=== PATIENT | female | born 1955 | race American Indian/Alaskan Native ===

== ENCOUNTER 2021-05-29 21:49 | Observation (INO) | payer MEDICAID ==
--- NOTE | 2021-05-29 22:13 | Emergency Department Report ---
ED Shortness of Breath HPI - General Chief Complaint: Dyspnea/Respdistress Stated Complaint: DIALYSIS/SHORTNESS OF BREATH Time Seen by Provider: 05/29/21 22:05 Source: EMS Mode of arrival: Stretcher Limitations: Other - History of Present Illness Initial Comments: 65-year-old female presents to ED with difficulty breathing. History of ESRD. Patient was last dialyzed 6 days ago. Missed 2 dialysis sessions secondary to transport not coming to pick the patient up. Patient due for dialysis again tomorrow. EMS was called because daughter noted that patient was having some trouble breathing. Patient states she does not feel like she was having any difficulty with her breathing. Patient states her daughter told her that she was breathing funny. EMS reports upon arrival, room air O2 sats were 83%. Patient was given Decadron 10 mg, albuterol 7.5 mg nebulizer. They also administered Nitropaste. States initial systolic BP in the field was in the 140s. CPAP was initiated by EMS. Patient does not know the name of her tissue recovery technician. MD Complaint: shortness of breath -: This evening Severity: moderate Consistency: constant Improves With: nothing Worsens With: nothing Treatments Prior to Arrival: NIPPV - Related Data Allergies Allergy/AdvReac Type Severity Reaction Status Date / Time ibuprofen Allergy Hives Verified 05/29/21 22:00 metronidazole [From Flagyl] Allergy Hives Verified 05/29/21 22:00 ED Review of Systems ROS: Stated complaint: DIALYSIS/SHORTNESS OF BREATH Other details as noted in HPI Comment: All other systems reviewed and negative Respiratory: shortness of breath Cardiovascular: denies: chest pain ED Past Medical Hx - Past Medical History Previous Medical History?: Yes Hx CVA: Yes Hx Diabetes: Yes Hx Renal Disease: Yes (DIALYSIS (M,W,F)) ED Physical Exam - General Limitations: Other General appearance: alert, in no apparent distress - Head Head exam: Present: atraumatic, normocephalic - Eye Eye exam: Present: normal appearance, EOMI - ENT ENT exam: Present: mucous membranes moist - Neck Neck exam: Present: normal inspection - Respiratory Respiratory exam: Present: rales - Cardiovascular Cardiovascular Exam: Present: regular rate, normal rhythm - GI/Abdominal GI/Abdominal exam: Present: soft. Absent: distended, tenderness - Extremities Exam Extremities exam: Present: normal inspection - Neurological Exam Neurological exam: Present: alert. Absent: oriented X3 (Oriented to self and place) - Psychiatric Psychiatric exam: Present: normal affect, normal mood - Skin Skin exam: Present: warm, dry, intact, normal color ED Course Vital Signs 05/29/21 05/29/21 05/29/21 21:58 22:36 23:31 Temperature 99.7 F H Pulse Rate 76 78 Respiratory 24 26 H Rate Blood Pressure Blood Pressure 138/58 [Left] O2 Sat by Pulse 100 99 Oximetry 05/29/21 05/29/21 05/30/21 23:41 23:45 00:01 Temperature Pulse Rate 70 79 83 Respiratory 25 H 30 H Rate Blood Pressure 124/55 131/62 Blood Pressure [Left] O2 Sat by Pulse 99 98 99 Oximetry 05/30/21 05/30/21 05/30/21 00:31 01:01 02:15 Temperature Pulse Rate 84 88 81 Respiratory 28 H 18 22 Rate Blood Pressure 139/58 139/97 137/57 Blood Pressure [Left] O2 Sat by Pulse 99 99 94 Oximetry 05/30/21 03:45 Temperature Pulse Rate 81 Respiratory 24 Rate Blood Pressure 137/55 Blood Pressure [Left] O2 Sat by Pulse Oximetry - Consultations Consultation #1: 05/30/21 00:[address] Ernst, tissue recovery technician, states will dialyze patient in the morning. ED Medical Decision Making - Lab Data Result diagrams: 05/29/21 22:56 05/29/21 22:56 - EKG Data -: EKG Interpreted by [facility] EKG shows normal: sinus rhythm, axis, intervals, QRS complexes, ST-T waves Rate: normal - EKG Data Interpretation: no acute changes - Radiology Data Radiology results: report reviewed, image reviewed - Medical Decision Making 65-year-old female presents to ED after missing dialysis. Patient was last dialyzed 6 days ago. O2 sats are normal. Chest x-ray shows possible pneumonia present. Patient is slightly tachypneic. She was given albuterol nebs and Decadron by EMS prior to ED arrival. Labs show hyperkalemia with potassium of 6.6. EKG is unremarkable. Patient given insulin, D50, calcium gluconate, Kayexalate. Nephrology has been consulted and will dialyze the patient in the morning. Patient will be admitted by Dr. Jolly, hospitalist. - Differential Diagnosis Pulmonary edema, pleural effusions, hyperkalemia Critical care attestation.: If time is entered above; I have spent that time in minutes in the direct care of this critically ill patient, excluding procedure time. ED Disposition Clinical Impression: Pneumonia, Hyperkalemia, ESRD needing dialysis Disposition: 09 ADMITTED INPATIENT Is pt being admited?: Yes Condition: Stable Time of Disposition: 00:09
[2021-05-29 23:38] LABS: Basophils % (Auto) 0.4 % (0.0-1.8); Eosinophils # (Auto) 0.1 K/mm3 (0.0-0.4); Eosinophils % (Auto) 1.7 % (0.0-4.3); Hematocrit 33.1 % (30.3-42.9); Hemoglobin 10.5 gm/dl (10.1-14.3); Lymphocytes # (Auto) 1.3 K/mm3 (1.2-5.4); Lymphocytes % (Auto) 15.1 % (13.4-35.0); Mean Corpuscular HGB Conc 32 % (30-34); Mean Corpuscular Volume 96 fl (79-97); Monocytes # (Auto) 0.3 K/mm3 (0.0-0.8); Monocytes % (Auto) 3.8 % (0.0-7.3); Platelet Count 187 K/mm3 (140-440); Red Blood Count 3.45 M/mm3 (3.65-5.03); Red Cell Distribution Width 17.1 % (13.2-15.2)
[2021-05-29 23:49] LABS: Calcium 8.6 mg/dL (8.4-10.2)
--- NOTE | 2021-05-29 23:54 | XRay Report ---
CHEST 1 VIEW 05/29/2021 11:02 PM INDICATION / CLINICAL INFORMATION: Shortness of breath. COMPARISON: None available. FINDINGS: SUPPORT DEVICES: There is a right jugular CVL with the tip overlying the upper cavoatrial junction. A cardiac loop recorder overlies the left chest. HEART / MEDIASTINUM: There is mild cardiomegaly. Pulmonary vasculature is normal for technique. There is calcification in the aortic arch without aneurysm. LUNGS / PLEURA: Interstitial lung markings are diffusely increased. There is mild patchy parenchymal disease in the right upper lobe. No pleural effusion. No pneumothorax. ADDITIONAL FINDINGS: No significant additional findings. IMPRESSION: 1. Mild diffuse interstitial lung disease may be chronic rather than acute. 2. Mild patchy parenchymal disease in the right upper lobe may be related to superimposed pneumonia. Signer Name: Tito Weeks MD Signed: 05/29/2021 11:49 PM Workstation Name: [id number]
[2021-05-30] MEDS ORDERED: SODIUM POLYSTYRENE 15 GM/60 ML ORAL LIQD PO ONE (00:01)
[2021-05-30] MEDS ORDERED: INSULIN REGULAR, HUMAN 100 UNITS/1 ML IV ONE (00:01)
[2021-05-30] MEDS ORDERED: DEXTROSE 50% IN WATER (25GM) 50 ML SYRINGE IV ONE (00:01)
[2021-05-30] MEDS ORDERED: levoFLOXacin 750 MG TAB PO ONE (00:06)
[2021-05-30] MEDS ORDERED: CALCIUM GLUCONATE 1,000 MG in SODIUM CHLORIDE 0.9% 100 ML IV ONE (00:41)
[2021-05-30] MEDS ORDERED: MAGNESIUM HYDROXIDE (MOM) ORAL LIQD UDC PO PRN (01:00)
[2021-05-30] MEDS ORDERED: MORPHINE 4 MG/1 ML INJ IV PRN (01:00)
[2021-05-30] MEDS ORDERED: ACETAMINOPHEN 325 MG TAB PO PRN (01:00)
[2021-05-30] MEDS ORDERED: ONDANSETRON 4 MG/2 ML INJ IV PRN (01:00)
[2021-05-30] MEDS ORDERED: MORPHINE 2 MG/1 ML INJ IV PRN (01:00)
[2021-05-30] MEDS ORDERED: DEXTROSE 50% IN WATER (25GM) 50 ML SYRINGE IV PRN (01:00)
[2021-05-30] MEDS ORDERED: diphenhydrAMINE 25 MG CAP PO ONE (01:09)
--- NOTE | 2021-05-30 01:21 | History and Physical Report ---
History of Present Illness Date of examination: 05/30/21 Date of admission: 05/30/2021 Chief complaint: Difficulty breathing History of present illness: 65-year-old female with known history of end-stage renal diseasedialysis on Mondays, Wednesdays and Fridays presents to the emergency room today complaining of difficulty breathing. Patient also indicates that she has not had dialysis in 6 days secondary to transportation issues. EMS had been called by daughter because patient was said to be having difficulty breathing. However upon arrival of EMS oxygen saturation was about 83% on room air. Patient was given Decadron, nebulizing treatments albuterol and Nitropaste. Patient was placed on CPAP in route to the hospital Upon arrival in the emergency room, patient felt much better without any significant respiratory distress. She was however slightly tachycardic and tachypneic and had a low-grade temperature of about 99.7 F. Work-up in the emergency room today, lab reveals a potassium level of 6.6, BUN of 71 and creatinine of 6.3. Chest x-ray shows mild patchy parenchymal disease in the right upper lobe which may be related to superimposed pneumonia. Mild diffuse interstitial lung disease which may be chronic rather than acute. Patient was started on empiric IV antibiotics for possible pneumonia. She also had Kayexalate, insulin and glucose, calcium gluconate for the hyperkalemia [employer] Operator on-call Dr. Ernst was also consulted by the ER physician. Past History Past Medical History: diabetes, dialysis, ESRD (Patient gets dialysis on Mondays, Wednesdays and Fridays.), stroke Past Surgical History: Other (Vas-Cath placement) Social history: no significant social history Family history: no significant family history Medications and Allergies Allergies Allergy/AdvReac Type Severity Reaction Status Date / Time ibuprofen Allergy Hives Verified 05/29/21 22:00 metronidazole [From Flagyl] Allergy Hives Verified 05/29/21 22:00 Active Meds: Active Medications Acetaminophen (Acetaminophen 325 Mg Tab) 650 mg PO Q4H PRN PRN Reason: Pain MILD(1-3)/Fever >100.5/FLORES Dextrose (Dextrose 50% In Water (25gm) 50 Ml Syringe) 0 ml IV Q30MIN PRN; Protocol PRN Reason: Hypoglycemia Heparin Sodium (Porcine) (Heparin 5,000 Unit/1 Ml Vial) 5,000 unit SUB-Q Q8HR ADALBERTO Ceftriaxone Sodium (Rocephin/Ns 2 Gm/100 Ml) 2 gm in 100 mls @ 200 mls/hr IV Q24HR ADALBERTO; Protocol Azithromycin (Zithromax/Ns) 500 mg in 250 mls @ 250 mls/hr IV Q24HR ADALBERTO; Protocol Insulin Human Lispro (Insulin Lispro 100 Unit/Ml) 0 unit SUB-Q ACHS ADALBERTO; Protocol Magnesium Hydroxide (Magnesium Hydroxide (Mom) Oral Liqd Udc) 30 ml PO Q4H PRN PRN Reason: Constipation Morphine Sulfate (Morphine 2 Mg/1 Ml Inj) 2 mg IV Q4H PRN PRN Reason: Pain, Moderate (4-6) Morphine Sulfate (Morphine 4 Mg/1 Ml Inj) 4 mg IV Q4H PRN PRN Reason: Pain , Severe (7-10) Ondansetron HCl (Ondansetron 4 Mg/2 Ml Inj) 4 mg IV Q8H PRN PRN Reason: Nausea And Vomiting Sodium Chloride (Sodium Chloride 0.9% 10 Ml Flush Syringe) 10 ml IV BID ADALBERTO Sodium Chloride (Sodium Chloride 0.9% 10 Ml Flush Syringe) 10 ml IV PRN PRN PRN Reason: LINE FLUSH Review of Systems Constitutional: no fever, no chills Ears, nose, mouth and throat: no nasal congestion, no sore throat Cardiovascular: no chest pain, no palpitations Respiratory: shortness of breath, no cough Gastrointestinal: no abdominal pain, no nausea, no vomiting, no diarrhea, no BRBPR, no melena Genitourinary Female: no pelvic pain, no flank pain, no dysuria, no hematuria Musculoskeletal: no neck pain, no low back pain Integumentary: no rash, no pruritis Neurological: no headaches, no confusion Psychiatric: no anxiety, no depression Endocrine: no polyphagia, no polydipsia, no polyuria, no nocturia Exam - Constitutional Vitals: Temp Pulse Resp BP Pulse Ox 99.7 F H 84 28 H 139/58 99 05/29/21 22:36 05/30/21 00:31 05/30/21 00:31 05/30/21 00:31 05/30/21 00:31 General appearance: Present: no acute distress, well-nourished - EENT Eyes: Present: PERRL, EOM intact. Absent: scleral icterus ENT: hearing intact, clear oral mucosa, dentition normal - Neck Neck: Present: supple, normal ROM - Respiratory Respiratory effort: normal Respiratory: bilateral: CTA - Cardiovascular Rhythm: regular Heart Sounds: Present: S1 & S2. Absent: gallop, systolic murmur, diastolic murmur, rub, click - Extremities Extremities: no ischemia, pulses intact, pulses symmetrical, No edema, normal temperature, normal color, Full ROM Peripheral Pulses: within normal limits - Abdominal General gastrointestinal: Present: soft, non-tender, non-distended, normal bowel sounds. Absent: mass - Integumentary Integumentary: Present: clear, warm, dry, normal turgor. Absent: rash - Musculoskeletal Musculoskeletal: strength equal bilaterally - Psychiatric Psychiatric: appropriate mood/affect, intact judgment & insight, memory intact, cooperative - Neurologic Neurologic: CNII-XII intact, no focal deficits, moves all extremities Results - Labs CBC & Chem 7: 05/29/21 22:56 05/29/21 22:56 Labs: Abnormal lab results 05/29/21 05/29/21 Range/Units 22:56 22:56 RBC 3.45 L (3.65-5.03) M/mm3 RDW 17.1 H (13.2-15.2) % Seg Neutrophils % 79.0 H (40.0-70.0) % Potassium 6.6 H* (3.6-5.0) mmol/L Carbon Dioxide 12 L (22-30) mmol/L BUN 71 H (7-17) mg/dL Creatinine 6.3 H (0.6-1.2) mg/dL Glucose 111 H (65-100) mg/dL Assessment and Plan - Patient Problems (1) ESRD needing dialysis Current Visit: Yes Status: Acute Plan to address problem: Patient gets dialysis on Mondays, Wednesdays and Fridays. She missed 2 sessions of dialysis secondary to transportation issues. She cannot recall the name of her edi programmer. [employer] has been consulted for possible dialysis in the a.m. (2) Hyperkalemia Current Visit: Yes Status: Acute Plan to address problem: Secondary to end-stage renal disease. Patient will be getting dialysis. Meanwhile patient has been given Kayexalate, calcium gluconate, insulin and glucose. We will monitor potassium levels. (3) Diabetes mellitus Current Visit: Yes Status: Acute Plan to address problem: We will monitor Accu-Cheks. Patient placed on sliding scale insulin. (4) Pneumonia Current Visit: Yes Status: Acute Plan to address problem: Patient placed on empiric IV antibiotics. (5) DVT prophylaxis Current Visit: Yes Status: Acute Plan to address problem: Patient placed on subcutaneous heparin. (6) Full code status Current Visit: Yes Status: Acute Plan to address problem: Patient is a full code.
[2021-05-30] MEDS: AZITHROMYCIN/NS 500 MG/250 ML 500 MG/250 ML BAG IV SCH ×2 (01:27→23:14)
[2021-05-30] MEDS: cefTRIAXone/NS 2 GM/100 ML 2 GM/100 ML BAG IV SCH ×2 (01:27→23:14)
[2021-05-30] MEDS: HEPARIN 5,000 UNIT/1 ML VIAL SUB-Q SCH ×3 (06:30→23:25)
--- NOTE | 2021-05-30 09:20 | Consultation ---
History of Present Illness - Reason for Consult Consult date: 05/30/21 end stage renal disease Requesting physician: RACHEL SAMANO - History of Present Illness 65-year-old female with known history of end-stage renal diseasedialysis on Mondays, Wednesdays and Fridays presented to the emergency room last night with complaints of difficulty breathing. Patient also indicates that she has not had dialysis in 6 days secondary to transportation issues. EMS had been called by daughter because patient was said to be having difficulty breathing. However upon arrival of EMS oxygen saturation was about 83% on room air. Patient was given Decadron, nebulizing treatments albuterol and Nitropaste. Patient was placed on CPAP in route to the hospital Upon arrival in the emergency room, patient felt much better without any significant respiratory distress. She was however slightly tachycardic and tachypneic and had a low-grade temperature of about 99.7 F. Work-up in the emergency room today, lab reveals a potassium level of 6.6, BUN of 71 and creatinine of 6.3. Chest x-ray shows mild patchy parenchymal disease in the right upper lobe which may be related to superimposed pneumonia. Mild diffuse interstitial lung disease which may be chronic rather than acute. Patient does not recall the name of her record tabulating clerk. Patient states that she goes to dialysis clinic in [place]. Past History Past Medical History: diabetes, dialysis, ESRD (Patient gets dialysis on Mondays, Wednesdays and Fridays.), stroke Past Surgical History: Other (Vas-Cath placement) Social history: no significant social history Family history: no significant family history Medications and Allergies Allergies Allergy/AdvReac Type Severity Reaction Status Date / Time ibuprofen Allergy Hives Verified 05/29/21 22:00 metronidazole [From Flagyl] Allergy Hives Verified 05/29/21 22:00 Active Meds: Active Medications Acetaminophen (Acetaminophen 325 Mg Tab) 650 mg PO Q4H PRN PRN Reason: Pain MILD(1-3)/Fever >100.5/FLORES Dextrose (Dextrose 50% In Water (25gm) 50 Ml Syringe) 0 ml IV Q30MIN PRN; Protocol PRN Reason: Hypoglycemia Heparin Sodium (Porcine) (Heparin 5,000 Unit/1 Ml Vial) 5,000 unit SUB-Q Q8HR ADALBERTO Last Admin: 05/30/21 06:30 Dose: 5,000 unit Documented by: Ceftriaxone Sodium (Rocephin/Ns 2 Gm/100 Ml) 2 gm in 100 mls @ 200 mls/hr IV Q24HR ADALBERTO; Protocol Stop: 06/02/21 10:29 Last Admin: 05/30/21 01:27 Dose: 200 mls/hr Documented by: Azithromycin (Zithromax/Ns) 500 mg in 250 mls @ 250 mls/hr IV Q24HR ADALBERTO; Protocol Stop: 06/02/21 10:59 Last Admin: 05/30/21 01:27 Dose: 250 mls/hr Documented by: Sodium Chloride (Nacl 0.9%) 100 mls @ 999 mls/hr IV ORLY PRN PRN Reason: Hypotension Insulin Human Lispro (Insulin Lispro 100 Unit/Ml) 0 unit SUB-Q ACHS ADALBERTO; Protocol Magnesium Hydroxide (Magnesium Hydroxide (Mom) Oral Liqd Udc) 30 ml PO Q4H PRN PRN Reason: Constipation Morphine Sulfate (Morphine 2 Mg/1 Ml Inj) 2 mg IV Q4H PRN PRN Reason: Pain, Moderate (4-6) Morphine Sulfate (Morphine 4 Mg/1 Ml Inj) 4 mg IV Q4H PRN PRN Reason: Pain , Severe (7-10) Ondansetron HCl (Ondansetron 4 Mg/2 Ml Inj) 4 mg IV Q8H PRN PRN Reason: Nausea And Vomiting Sodium Chloride (Sodium Chloride 0.9% 10 Ml Flush Syringe) 10 ml IV BID ADALBERTO Sodium Chloride (Sodium Chloride 0.9% 10 Ml Flush Syringe) 10 ml IV PRN PRN PRN Reason: LINE FLUSH Review of Systems All systems: negative (Negative except as noted above) Exam - Vital Signs Vital signs: Vital Signs Pulse Resp BP Pulse Ox 76 24 138/58 100 05/29/21 21:58 05/29/21 21:58 05/29/21 21:58 05/29/21 21:58 - General Appearance General appearance: well-developed, well-nourished, appears stated age EENT: PERRL, mucous membranes moist Neck: Present: neck supple, trachea midline, Other (Right IJ PermCath in place). Absent: JVD/HJR, Masses Respiratory: Clear to Ascultation Heart: regular, normal heart rate, S1S2, no murmurs Gastrointestinal: Present: normal, normoactive bowel sounds Integumentary: no rash, warm and dry, other (No edema) Results - Lab Results 05/29/21 22:56 05/29/21 22:56 Most recent lab results Calcium 8.6 mg/dL (8.4-10.2) 05/29/21 22:56 Assessment and Plan Impression * End-stage renal disease on maintenance hemodialysis * Noncompliance * Hyperkalemia * Metabolic acidosis * Anemia secondary to ESRD * Diabetes * History of CVA Recommendations * Shall arrange for hemodialysis this morning as soon as possible * Hopefully her hyperkalemia and acidosis will be corrected with dialysis * Recheck her chemistries again tomorrow. She may need additional dialysis treatment * Remove fluid as tolerated with dialysis * Adjust diet and meds for ESRD state * Avoid nephrotoxins * Epogen with dialysis * Binders with meals * Thank you very much for the consultation. Shall follow along with you
[2021-05-30] MEDS ORDERED: SODIUM CHLORIDE 0.9% 100 ML IV PRN (10:00)
[2021-05-30 15:09] LABS: Hepatitis C Virus Antibody Non-Reactive (NonReactive)
[2021-05-30 15:28] LABS: Hepatitis B Surface Antigen Nonreactive (Negative)
--- NOTE | 2021-05-30 16:30 | Discharge Summary ---
<RACHEL SAMANO - Last Filed: 05/30/21 16:29> Providers - Providers Date of Admission: 05/30/21 00:09 Date of discharge: 05/30/21 Attending physician: RACHEL SAMANO 05/30/21 00:09 Consult to Physician [CONS] Stat Comment: Consulting Provider: SALLY ROWLAND Physician Instructions: Reason For Exam: hyperkalemia 05/30/21 01:02 Consult to Dietitian/Nutrition [CONS] Routine Physician Instructions: Reason For Exam: Reason for Consult: Diet education Primary care physician: THERAPEUTIC MASSAGE TECHNICIAN Hospitalization Condition: Stable Disposition: 01 HOME / SELF CARE / HOMELESS Exam - Constitutional Vitals: Temp Pulse Resp BP Pulse Ox 97.3 F L 89 16 148/63 100 05/30/21 13:47 05/30/21 14:31 05/30/21 14:31 05/30/21 14:31 05/30/21 14:31 Plan Follow up with: RACHEL SAMANO MD [Staff Physician] - 7 Days <RAE HERNANDEZ - Last Filed: 06/01/21 22:28> Providers - Providers Date of Admission: 05/30/21 00:09 Attending physician: RACHEL SAMANO 05/30/21 00:09 Consult to Physician [CONS] Stat Comment: Consulting Provider: SALLY ROWLAND Physician Instructions: Reason For Exam: hyperkalemia 05/30/21 01:02 Consult to Dietitian/Nutrition [CONS] Routine Physician Instructions: Reason For Exam: Reason for Consult: Diet education Primary care physician: THERAPEUTIC MASSAGE TECHNICIAN Hospitalization Final Discharge Diagnosis (Prints w/discharge instructions): hyperkalemia Time spent for discharge: 35 - Discharge Diagnoses (1) Diabetes mellitus Status: Acute (2) ESRD needing dialysis Status: Acute (3) Hyperkalemia Status: Acute Core Measure Documentation - Core Measures Any of the following diagnoses?: none Exam - Constitutional Vitals: Temp Pulse Resp BP Pulse Ox 98.4 F 90 16 148/88 100 05/30/21 18:04 05/30/21 21:01 05/30/21 21:01 05/30/21 21:01 05/30/21 20:01 Plan Diet: low fat, low cholesterol, low salt Pending Studies to be done by DR Sonia jones
[2021-05-30 21:51] VITALS: BP 149/101
[2021-05-30] MEDS: INSULIN LISPRO 100 UNIT/ML SUB-Q SCH ×3 (23:15→23:25)
== END 2021-05-31 02:30 | disposition home or self-care (01) ==
LOC: ED 21:49 → 4A 05-30 00:09
PROVIDERS: ADMIT Internal Medicine Geriatric Medicine; ATTEND Internal Medicine
DX: J18.9 Pneumonia, unspecified organism (principal); E87.5 Hyperkalemia; N18.6 End stage renal disease; E11.9 Type 2 diabetes mellitus without complications; D63.1 Anemia in chronic kidney disease; Z99.2 Dependence on renal dialysis; Z79.899 Other long term (current) drug therapy; Z98.890 Other specified postprocedural states; Z79.4 Long term (current) use of insulin; Z86.73 Personal history of transient ischemic attack (TIA), and cerebral infarction without residual deficits; Z91.14 Patient's other noncompliance with medication regimen
CPT/HCPCS: 36415; 71045; 80048; 80074; 82962; 84132; 85025; 87040; 93005; 96365; 96367; 96368; 96372; 96375; 99285; G0257; G0378; J0456; J0610; J0696; J1644; J3490; Q9967; J1815